=== PATIENT | female | born 2000 | race Two or more races ===

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

== ENCOUNTER 2024-04-02 22:17 | Emergency (ER) | payer BC, SELFPAY ==
[~2024-04-02] VITALS: Ht 157.5 cm; Wt 61.7 kg
[2024-04-03] MEDS ORDERED: AMOX875T2 PO (01:36)
[2024-04-03] MEDS ORDERED: IBUP-1022 PO (01:36)
[2024-04-03] MEDS: IBUPROFEN 600MG TAB PO ONE (01:46)
[2024-04-03] MEDS: AUGMENTIN 875 MG TAB PO ONE (01:46)
[2024-04-03] MEDS: BOOSTRIX VACCINE (TETANUS/DIPHTH/ACEL. PERTUSSIS) 0.5ML SYR IM ONE (01:47)
[2024-04-03 01:59] VITALS: BP 130/79; TEMP 97.8; O2SAT 97
== END 2024-04-03 02:14 | disposition home or self-care (01) ==
LOC: M ED 22:17
DX: S60.222A Contusion of left hand, initial encounter (principal); Y92.019 Unspecified place in single-family (private) house as the place of occurrence of the external cause; Y93.9 Activity, unspecified; Y99.9 Unspecified external cause status; W54.0XXA Bitten by dog, initial encounter; Z79.1 Long term (current) use of non-steroidal anti-inflammatories (NSAID); Z79.2 Long term (current) use of antibiotics; Z23 Encounter for immunization